=== PATIENT | male | born 1950 | race Caucasian/White ===

== ENCOUNTER 2019-11-29 22:51 | Outpatient (REF) | payer OTHER, SELFPAY ==
[2019-11-29 21:34] LABS: HCT 43.2 % (40.0-50.0); HGB 15.4 g/dL (13.5-17.5); Mean Corp. HGB Concentration 35.6 g/dL (32.0-36.0); Mean Corpuscular Hemoglobin 34.1 pg (27.0-33.0); Mean Corpuscular Volume 95.8 fL (80-95); Mean Platelet Volume 10.3 fL (8.0-11.0); Platelet Count 160 x1000/uL (130-400); RBC 4.51 m/cumm (4.50-6.00); RBC Distribution Width 12.4 % (11.8-14.1); White Blood Cell Count 5.46 k/cumm (4.4-10.8)
[2019-11-29 22:00] LABS: BUN 13 mg/dL (7-18); CREATININE 0.84 mg/dL (0.70-1.30); Chloride 102 mmol/L (98-107); Glucose 104 mg/dL (74-106); Potassium 4.9 mmol/L (3.5-5.1); Sodium 138 mmol/L (136-145); TSH (W/Ref FT4) 1.66 uIU/mL (0.36-3.74)
[2019-11-29 22:44] LABS: Calcium 10.2 mg/dL (8.5-10.1); Vitamin B12 1285 pg/mL (193-986)
== END 2019-11-29 23:11 ==
LOC: NCHCN 22:51
PROVIDERS: PCP Family Medicine; Visit Provider Nurse Practitioner Community Health
DX: E11.9 Type 2 diabetes mellitus without complications (principal); I10 Essential (primary) hypertension; E78.00 Pure hypercholesterolemia, unspecified; G62.9 Polyneuropathy, unspecified
CPT/HCPCS: 80048; 85027; 82607; 84443

== ENCOUNTER 2020-07-15 19:05 | Outpatient (REF) | payer OTHER, SELFPAY ==
[2020-07-15 13:47] LABS: ALT 32 U/L (16-63); AST 20 U/L (15-37); Albumin 3.9 g/dL (3.4-5.0); Alkaline Phosphatase 62 U/L (46-116); Bilirubin, Direct 0.13 mg/dL (0.00-0.20); Bilirubin, Total 0.5 mg/dL (0.2-1.0); Total Protein 6.8 g/dL (6.4-8.2)
[2020-07-15 14:06] LABS: Calculated LDL 136 mg/dL (<100); Cholesterol 219 mg/dL (<200); HDL Cholesterol 63 mg/dL (40-60); Triglyceride 102 mg/dL (<150)
== END 2020-07-15 19:25 ==
LOC: NCHCN 19:05
PROVIDERS: PCP Family Medicine; Visit Provider Nurse Practitioner Community Health
DX: E78.00 Pure hypercholesterolemia, unspecified (principal); F10.11 Alcohol abuse, in remission
CPT/HCPCS: 80061; 80076

== ENCOUNTER 2020-12-17 18:12 | Outpatient (REF) | payer OTHER, SELFPAY ==
[2020-12-17 13:55] LABS: Anion Gap 12.8 mmol/L (3-11); BUN 12 mg/dL (7-18); CO2 22.2 mmol/L (21.0-32.0); CREATININE 0.8 mg/dL (0.70-1.30); Calcium 8.7 mg/dL (8.5-10.1); Chloride 105 mmol/L (98-107); Glucose 158 mg/dL (74-106); Sodium 140 mmol/L (136-145)
== END 2020-12-17 18:13 | disposition home or self-care (01) ==
LOC: NCHCN 18:12
PROVIDERS: PCP Family Medicine; Visit Provider Family Medicine
DX: R73.03 Prediabetes (principal); I10 Essential (primary) hypertension
CPT/HCPCS: 80048

== ENCOUNTER 2022-03-24 14:12 | Outpatient (REF) | payer MEDICARE, SELFPAY ==
[2022-03-24 14:31] LABS: HCT 45.3 % (40.0-50.0); HGB 16.8 g/dL (13.5-17.5); MCH 32.2 pg (27.0-33.0); MCHC 37.1 % (32.0-36.0); MCV 87 fL (80-95); MPV 10.2 fL (8.0-11.0); Platelet Count 155 10^3/uL (130-400); RBC 5.22 10^6/uL (4.36-5.78); RDW 13.2 % (11.8-14.1); RDW-SD 41.3 fL; WBC 5.46 10^3/uL (4.4-10.8)
[2022-03-24 15:16] LABS: Anion Gap 13.1 mmol/L (3-11); BUN 20 mg/dL (7-18); CO2 22.9 mmol/L (21.0-32.0); CREATININE 0.9 mg/dL (0.70-1.30); Calcium 9.1 mg/dL (8.5-10.1); Calculated LDL 144 mg/dL (<100); Chloride 97 mmol/L (98-107); Cholesterol 238 mg/dL (<200); Estimated GFR 91.31 (mL/min/1.73m2); Folate 14.2 ng/mL (8.6-20.0); Glucose 314 mg/dL (74-106); HDL Cholesterol 54 mg/dL (40-60); Potassium 4.5 mmol/L (3.5-5.1); Sodium 133 mmol/L (136-145); Triglyceride 201 mg/dL (<150); Vitamin B12 588 pg/mL (193-986)
[2022-03-24 22:12] LABS: Albumin, Ur < 0.6 mg/dL (See Note); Creatinine, Ur 71.3 mg/dL (See Note)
== END 2022-03-24 14:13 | disposition home or self-care (01) ==
LOC: NCHCN 14:12
PROVIDERS: PCP Family Medicine; Visit Provider Family Medicine
DX: I10 Essential (primary) hypertension (principal); E78.00 Pure hypercholesterolemia, unspecified; E11.8 Type 2 diabetes mellitus with unspecified complications; E66.9 Obesity, unspecified; D53.1 Other megaloblastic anemias, not elsewhere classified; D52.9 Folate deficiency anemia, unspecified
CPT/HCPCS: 80048; 80061; 85027; 82043; 82570; 82607; 82746

== ENCOUNTER 2022-04-28 16:57 | Outpatient (REF) | payer MEDICARE, SELFPAY ==
[2022-04-28 23:10] LABS: ALT 27 U/L (16-63); AST 22 U/L (15-37); Albumin 3.7 g/dL (3.4-5.0); Alkaline Phosphatase 57 U/L (46-116); Anion Gap 5.9 mmol/L (3-11); BUN 13 mg/dL (7-18); Bilirubin, Total 0.5 mg/dL (0.2-1.0); CO2 25.1 mmol/L (21.0-32.0); CREATININE 0.8 mg/dL (0.70-1.30); Calcium 9.4 mg/dL (8.5-10.1); Chloride 103 mmol/L (98-107); Estimated GFR 94.62 (mL/min/1.73m2); Glucose 177 mg/dL (74-106); NT-proBNP 176 pg/mL (<300); Potassium 4.2 mmol/L (3.5-5.1); Sodium 134 mmol/L (136-145); Total Protein 6.5 g/dL (6.4-8.2)
== END 2022-04-28 16:58 | disposition home or self-care (01) ==
LOC: NCHCN 16:57
PROVIDERS: PCP Family Medicine; Visit Provider Nurse Practitioner Family
DX: R60.9 Edema, unspecified (principal); I10 Essential (primary) hypertension
CPT/HCPCS: 80053; 83880

== ENCOUNTER 2022-05-07 18:42 | Outpatient (REF) | payer MEDICARE, SELFPAY ==
[2022-05-07 22:07] LABS: Anion Gap 10.4 mmol/L (3-11); BUN 14 mg/dL (7-18); CO2 24.6 mmol/L (21.0-32.0); CREATININE 0.8 mg/dL (0.70-1.30); Calcium 9.4 mg/dL (8.5-10.1); Chloride 103 mmol/L (98-107); Estimated GFR 94.62 (mL/min/1.73m2); Glucose 200 mg/dL (74-106); Potassium 4.3 mmol/L (3.5-5.1); Sodium 138 mmol/L (136-145)
== END 2022-05-07 18:43 | disposition home or self-care (01) ==
LOC: NCHCN 18:42
PROVIDERS: PCP Family Medicine; Visit Provider Family Medicine
DX: R60.9 Edema, unspecified (principal)
CPT/HCPCS: 80048

== ENCOUNTER 2022-10-12 12:28 | Outpatient (REF) | payer MEDICARE, SELFPAY ==
[2022-10-12 14:29] LABS: HGB 16.6 g/dL (13.5-17.5)
[2022-10-12 14:51] LABS: Hemoglobin A1C 7.1 % (<5.7)
== END 2022-10-12 12:29 | disposition home or self-care (01) ==
LOC: NCHCN 12:28
PROVIDERS: PCP Family Medicine; Visit Provider Family Medicine
DX: E11.8 Type 2 diabetes mellitus with unspecified complications (principal); I10 Essential (primary) hypertension; E66.8 Other obesity
CPT/HCPCS: 83036; 85018

== ENCOUNTER 2023-06-07 10:41 | Outpatient (REF) | payer MEDICARE, SELFPAY ==
--- OUTSIDE RECORDS SUMMARY | 2023-06-07 10:44 | XMS_ITS | CCD ---
Author Name Unknown Address [address] [place] [address] [id number] Organization Unknown Address [address] [place] [address] [phone] Care Team Providers Care Art Professor Name Role Phone ABDOULAYE BERRIOS Attending Physician [phone] Vital Signs Unknown or Not Available. Allergies Allergy Code Allergy Type Reaction Status COCONUT 0 Food allergy RASH Active No Known Drug Allergies 0 No known drug allergies Active Procedures Unknown or Not Available. History of Immunizations Unknown or Not Available. Problems Unknown or Not Available. Results Unknown or Not Available. Active Medications Unknown or Not Available. Medications Administered During Visit Unknown or Not Available. Encounters Encounter Diagnosis Diagnosis Code Start Date Other tear of medial meniscu s, current injury, right knee, initial encounter [id number] 02/05/2022 Social History Smoking Status Code Start Date End Date Never smoker [id number] Patient Decision Aids Unknown or Not Available. Discharge Instructions You were admitted to [facility] on 02/05/2022 12:22 with a principal diagnosis of Other tear of medial meniscus, current injury, right knee, initial encounter You were discharged from [facility] on 02/05/2022 12:23 Should you have any questions prior to discharge, please contact a member of your healthcare team. If you have left the hospital and have any questions, please contact your primary care physician. Chief Complaint and Reason For Visit Chief Complaint Date of Onset RT KNEE PAIN Function Status Unknown or Not Available. Plan of Care Unknown or Not Available. Referral/Transition of Care Unknown or Not Available.
--- OUTSIDE RECORDS SUMMARY | 2023-06-07 10:44 | XMS_ITS | CCD ---
Author Name Unknown Address [address] [place] [address] [id number] Organization Unknown Address [address] [place] [address] [phone] Care Team Providers Care Heel Washer Stringing Machine Operator Name Role Phone RITESH GODINEZ Attending Physician [phone] Vital Signs Unknown or Not Available. Allergies [...] Encounters Encounter Diagnosis Diagnosis Code Start Date Pain in right knee [id number] 12/17/2022 Social History Smoking Status Code Start Date End Date Never smoker [id number] Patient Decision Aids Unknown or Not Available. Discharge Instructions You were admitted to [facility] on 12/17/2022 07:57 with a principal diagnosis of Pain in right knee You were discharged from [facility] Should you have any questions prior to discharge, please contact a member of your healthcare team. If you have left the hospital and have any questions, please contact your primary care physician. Chief Complaint and Reason For Visit Unknown or Not Available. Function Status Unknown or Not Available. Plan of Care Unknown or Not Available. Referral/Transition of Care Unknown or Not Available.
--- OUTSIDE RECORDS SUMMARY | 2023-06-07 10:44 | XMS_ITS | CCD ---
Author Name Unknown Address [address] [place] [address] [id number] Organization Unknown Address [address] [place] [address] [phone] Care Team Providers Care Ton Cylinder Inspector Name Role Phone ABDOULAYE BERRIOS Attending Physician [phone] ABDOULAYE BERRIOS Rounding (Secondary) Physician [phone] Vital Signs Unknown or Not Available. Allergies [...] Encounters Encounter Diagnosis Diagnosis Code Start Date Idiopathic osteoarthritis [id number] 2021 Social History Smoking Status Code Start Date End Date Never smoker [id number] Patient Decision Aids Unknown or Not Available. Discharge Instructions You were admitted to [facility] on 02/26/2022 08:17 with a principal diagnosis of Unilateral primary osteoarthritis, right knee You were discharged from [facility] on 02/26/2022 00:00 Should you have any questions prior to [...]
--- OUTSIDE RECORDS SUMMARY | 2023-06-07 10:44 | XMS_ITS | CCD ---
Author Name Unknown Address [address] [place] [address] [id number] Organization Unknown Address [address] [place] [address] [phone] Care Team Providers Care Call Or Contact Centre Manager Name Role Phone ABDOULAYE BERRIOS Attending Physician [phone] ABDOULAYE BERRIOS Rounding (Secondary) Physician [phone] Vital Signs Unknown or Not Available. Allergies [...] Diagnosis Diagnosis Code Start Date Idiopathic osteoarthritis [id number] 2021 Social History Smoking Status Code Start Date End Date Never smoker [id number] Patient Decision Aids Unknown or Not Available. Discharge Instructions You were admitted to [facility] on 01/28/2022 14:28 with a principal diagnosis of Unilateral primary osteoarthritis, right knee You were discharged from [facility] on 01/28/2022 00:00 Should you have any questions prior [...]
--- OUTSIDE RECORDS SUMMARY | 2023-06-07 10:44 | XMS_ITS | CCD ---
Author Name Unknown Address [address] [place] [address] [id number] Organization Unknown Address [address] [place] [address] [phone] Care Team Providers Care Auto Battery Builder Name Role Phone LAURENT RODAS Attending Physician [phone] STACI RANDALL Er Physician [phone] ZAHIDA Ingram Registered Nurse [phone] Vital Signs Vital Sign Value Unit Date/Time Recent/Initial ? BMI (Body Mass Index) 38.17 kg/m^2 11/29/2021 17: 35 Initial VS Weight Measured 266 lbs 11/29/2021 17:35 Ini tial VS Height 70 in 11/29/2021 17:35 Initial VS BSA (Body Surface Area) 2.44 m^2 11/29/2021 1 7:35 Initial VS BP Systolic 103 mmHg 11/29/2021 17:35 Initial VS BP Diastolic 61 mmHg 11/29/2021 17:35 Initia l VS Respiratory Rate 20 bpm 11/29/2021 17:35 In itial VS Heart Rate 83 bpm 11/29/2021 17:35 Initial VS O2 % BldC Oximetry 96 % 11/29/2021 17:35 Initial VS Body Temperature 35.7 degrees 11/29/2021 17:35 In itial VS Allergies Allergy Code Allergy Type Reaction Status COCONUT 0 Food allergy RASH Active No Known Drug Allergies 0 No known drug allergies Active Procedures Unknown or Not Available. History of Immunizations Unknown or Not Available. Problems Unknown or Not Available. Results ALCOHOL (ETHANOL)* - Collect Date/Time: 11/29/2021 17:30 Test Name Code Test Result Test Units Test Ref Rang e ALCOHOL (ETHANOL) 31917-0 253 mg/dL COMPREHENSIVE METABOLIC PANE L (CMP) - Collect Date/Time: 11/29/2021 17:30 Test Name Code Test Result Test Units Test Ref Rang e GLUCOSE 2345-7 137 mg/dL L=70 H=116 BUN 3094-0 11 mg/dL L=6 H=25 CREATININE 2160-0 1.14 mg/dL L=0.67 H=1.17 SODIUM SERUM 2951-2 135 mmol/L L=136 H=145 POTASSIUM SERUM 2823-3 3.7 mmol/L L=3.4 H=5 .2 CHLORIDE SERUM 2075-0 98 mmol/L L=96 H=110 CARBON DIOXIDE (CO2) 2028-9 21 mmol/L L=22 H=34 ANION GAP 73000-6 16.1 mmol/L CALCIUM SERUM 12566-2 8.9 mg/dL L=8.2 H=10. 2 BILIRUBIN TOTAL 1975-2 0.4 mg/dL L=0.0 H=1 .3 ALK. PHOS. 6768-6 61 U/L L=46 H=116 SGOT (AST) 1920-8 25 U/L L=15 H=37 SGPT (ALT) 1742-6 24 U/L L=12 H=78 TOTAL PROTEIN 2885-2 6.7 gm/dL L=6.0 H=8.0 ALBUMIN 1751-7 3.8 gm/dL L=3.4 H=5.0 AGE 71 years eGFR (non-Afr.Amer.) 73292-1 64 mL/min eGFR (Afr-Gambian) 74444-9 77 mL/min CBC W/ DIFFERENTIAL* - [facility] ct Date/Time: 11/29/2021 17:30 Test Name Code Test Result Test Units Test Ref Rang e WBC 6690-2 11.02 th/cmm L=5.00 H=10.00 NEUT % 71.2 % L=40.0 H=80.0 LYMPH % 19.1 % L=10.0 H=50.0 MONO % 89240-6 8.3 % L=2.0 H=12.0 EOS % 0.4 % L=0.0 H=8.0 BASO % 0.5 % L=0.0 H=3.0 IG % 2514-8 0.5 % L=0.0 H=1.1 NRBC % 26204-0 0.0 % L=0.0 H=0.0 NEUT abs count 751-8 7.9 th/cmm L=1.6 H=8. 4 LYMPH abs count 731-0 2.1 th/cmm L=1.5 H=4 .0 MONO abs count 742-7 0.9 th/cmm L=0.2 H=1. 0 EOS abs count 711-2 0.0 th/cmm L=0.0 H=0.5 BASO abs count 704-7 0.1 th/cmm L=0.0 H=0. 2 IG abs count 67019-3 0.1 th/cmm L=0.0 H=0.1 NRBC abs count 24729-8 0.0 mil/cmm L=0.0 H=0. 0 RBC 789-8 4.73 mil/cmm L=4.30 H=6.20 HEMOGLOBIN 718-7 15.9 gm/dL L=13.0 H=17.0 HEMATOCRIT 4544-3 43 % L=45 H=52 MCV 787-2 92 fL L=82 H=92 MCH 785-6 33.6 pg L=27.0 H=31.0 MCHC 786-4 36.6 % L=32.0 H=36.0 RDW-SD 788-0 42.1 fL L=39.0 H=49.0 PLATELET COUNT 777-3 212 th/cmm L=150 H=45 0 Active Medications Unknown or Not Available. Medications Administered During Visit Unknown or Not Available. Encounters Encounter Diagnosis Diagnosis Code Start Date Pain in right knee [id number] 11/29/2021 Social History Smoking Status Code Start Date End Date Never smoker [id number] Patient Decision Aids Unknown or Not Available. Discharge Instructions You were admitted to [facility] on 11/29/2021 17:17 with a principal diagnosis of Pain in right knee You had the following tests done:ALCOHOL (ETHANOL)*CBC W/ DIFFERENTIAL*COMPREHENSIVE METABOLIC PANEL (CMP) You were discharged from [facility] on 11/29/2021 20:20 Should you have any questions prior to discharge, please contact a member of your healthcare team. If you have left the hospital and have any questions, please contact your primary care physician. Chief Complaint and Reason For Visit Chief Complaint Date of Onset FALL Function Status Unknown or Not Available. Plan of Care Unknown or Not Available. Referral/Transition of Care Unknown or Not Available.
--- OUTSIDE RECORDS SUMMARY | 2023-06-07 10:44 | XMS_ITS | CCD ---
Author Name Unknown Address [address] [place] [address] [phone] Organization Unknown Address [address] [place] [address] [phone] Care Team Providers Care Adon Name Role Phone ABDOULAYE BERRIOS Attending Physician [phone] ABDOULAYE BERRIOS Rounding (Secondary) Physician [phone] Vital Signs Unknown or Not Available. Allergies [...] Diagnosis Diagnosis Code Start Date Idiopathic osteoarthritis [id number] 2021 Social History Smoking Status Code Start Date End Date Never smoker [id number] Patient Decision Aids Unknown or Not Available. Discharge Instructions You were admitted to [facility] on 05/12/2022 12:42 with a principal diagnosis of Unilateral primary osteoarthritis, right knee You were discharged from [facility] on 05/12/2022 00:00 Should you have any questions prior [...]
--- OUTSIDE RECORDS SUMMARY | 2023-06-07 10:44 | XMS_ITS | CCD ---
Author Name Unknown Address [address] [place] [address] [phone] Organization Unknown Address [address] [place] [address] [phone] Care Team Providers Care Coagulant Dipper Name Role Phone RITESH GODINEZ Attending Physician [phone] RITESH GODINEZ Rounding (Secondary) Physician [phone] Vital Signs Unknown or Not Available. Allergies [...] During Visit Unknown or Not Available. Encounters Unknown or Not Available. Social History Smoking Status Code Start Date End Date Never smoker [id number] Patient Decision Aids Unknown or Not Available. Discharge Instructions You were admitted to [facility] on 06/01/2023 07:10 You were discharged from [facility] on 06/01/2023 07:10 Should you have any questions prior to [...]
[2023-06-07 14:54] LABS: ALT 27 U/L (16-63); AST 25 U/L (15-37); Albumin 3.9 g/dL (3.4-5.0); Alkaline Phosphatase 54 U/L (46-116); BUN 13 mg/dL (7-18); Bilirubin, Total 0.8 mg/dL (0.2-1.0); CREATININE 0.8 mg/dL (0.70-1.30); Calcium 9.7 mg/dL (8.5-10.1); Calculated LDL 128 mg/dL (<100); Chloride 103 mmol/L (98-107); Cholesterol 207 mg/dL (<200); Estimated GFR 94.03 (mL/min/1.73m2); Glucose 136 mg/dL (74-106); HDL Cholesterol 66 mg/dL (40-60); Potassium 4.4 mmol/L (3.5-5.1); Sodium 138 mmol/L (136-145); Total Protein 7.2 g/dL (6.4-8.2); Triglyceride 67 mg/dL (<150)
== END 2023-06-07 10:42 | disposition home or self-care (01) ==
LOC: NCHCN 10:41
PROVIDERS: PCP Family Medicine; Visit Provider Family Medicine
DX: E78.00 Pure hypercholesterolemia, unspecified (principal); I10 Essential (primary) hypertension; Z51.81 Encounter for therapeutic drug level monitoring
CPT/HCPCS: 80053; 80061

== ENCOUNTER 2023-07-19 16:10 | Outpatient (REF) | payer MEDICARE, SELFPAY ==
[2023-07-19 15:32] LABS: COMMENT (LAB VIEW ONLY) 103.56 mg/dL; Microalb ug/mg Crea 4.9 ug/mg Cr
== END 2023-07-19 16:11 | disposition home or self-care (01) ==
LOC: NCHCN 16:10
PROVIDERS: PCP Family Medicine; Visit Provider Family Medicine
DX: E11.9 Type 2 diabetes mellitus without complications (principal)
CPT/HCPCS: 82043; 82570